=== PATIENT | male | born 1950 | race Caucasian/White ===

== ENCOUNTER 2018-08-27 13:27 | Emergency (ER) | payer BC, SELFPAY ==
[2018-08-27 13:28] VITALS: BP 157/93; PULSE 73; RESP 16; TEMP 36.9; O2SAT 96; BMI 32.8
--- NOTE | 2018-08-27 13:42 | ED.VIS.EYE ---
History of Present Illness Chief Complaint: Eye Problem Detail of Chief Complaint: Foreign body right eye Informant: Patient Location: Right Eye Onset: Days - 3 days Current Severity: Mild Maximum Severity: Moderate Associated Symptoms - Eyes: Foreign body sensation History of injury: Yes Visual correction: Glasses Narrative: Patient believes he got a piece of slack in his right eye 3 days ago. He states he thought he got it out and he had no pain that evening or the following day. Yesterday he had some mild right eye irritation and today it seems to be somewhat worse. He denies vision changes. Past Medical History - Allergies and Home Meds Allergies/Adverse Reactions: Allergies No Known Allergies Allergy (Verified 08/27/18 13:28) Primary Care Physician: Care Physician,No Primary [Primary Care Provider] - Prior records reviewed: Yes Past Medical History: - - Reviewed Lives: Spouse/ Significant Other Review of Systems General: Denies: Chills, Fever Eyes: Reports: - - Foreign body sensation right eye. Denies: Visual changes - left, Visual changes - right ENT: Denies: Bilateral ear pain Cardiovascular: Denies: Chest pain Respiratory: Denies: Dyspnea Gastrointestinal: Denies: Abdominal pain Neurological: Denies: Headache Physical Exam Eyelid: Normal inspection Right Conjunctiva/Sclera: No foreign body, - - Mild diffuse injection of the right conjunctiva. No obvious foreign body noted. Eyelid is inverted with no obvious foreign body. Left Conjunctiva/Sclera: Normal inspection Right Cornea: Normal inspection, Fluorescein dye uptake Extraocular Motion: Normal exam, No pain Pupils: PERRL Vital Signs/Narrative: Vital Signs Temp Pulse Resp BP Pulse Ox 08/27/18 13:28 98.5 F 73 16 157/93 H 96 General: Well nourished Head: Normocephalic ENT: Moist mucous membranes Cardiovascular: Regular rate, Regular rhythm Respiratory: No distress, CTA bilaterally Abdomen: Soft, Nontender Skin: Normal color Psychological: Normal affect Diagnostic/Tx/Re-eval - Medical Decision Making Patient has diffuse slight uptake diffusely over the eye. He will be given gentamicin eyedrops and will follow-up with either his volleyball referee or Dr. Blankenship. Procedures Procedure(s): Slit-lamp examination is performed. No obvious foreign body noted. No ulcerations noted. Fluorescein is applied and he has slight diffuse uptake over the eye as if he may have fallen asleep with his eye open. Because his pain initially was better after his reported foreign body and then worsened again this is certainly a possibility. Disposition: Home ED Disposition - Plan for ED Patient: Disposition: Home or Assisted Living Diagnosis: Corneal abrasion Instructions: ED Corneal Abrasion Referrals: Feliberto Blankenship MD [STAFF PHYSICIAN] - 1-2 Days if not improving Additional Instructions: 2 drops Gentamicin to right eye 4x/day until symptoms resolved for 24 hours.
[2018-08-27] MEDS: Fluorescein 1 MG STRIP 1 STRIP RIGHT EYE (13:47)
[2018-08-27] MEDS: Tetracaine 0.5% Ophthalmic Bottle 1 DRP RIGHT EYE (13:48)
[2018-08-27] MEDS: Gentamicin Sulfate 1 OPTH.BTL 2 DRP RIGHT EYE (14:35)
== END 2018-08-27 14:38 | disposition home or self-care (01) ==
PROVIDERS: Emergency Provider Emergency Medicine
DX: S05.01XA Injury of conjunctiva and corneal abrasion without foreign body, right eye, initial encounter (principal); X58.XXXA Exposure to other specified factors, initial encounter; Y93.89 Activity, other specified; Y92.89 Other specified places as the place of occurrence of the external cause; Y99.8 Other external cause status
CPT/HCPCS: 99282

== ENCOUNTER 2021-05-10 09:09 | Emergency (ER) | payer BC, SELFPAY ==
[2021-05-10 09:10] VITALS: BP 209/105; PULSE 83; RESP 16; TEMP 36.2; O2SAT 99; BMI 33.0
--- NOTE | 2021-05-10 09:15 | EDS_ITS ---
HPI <PAT Watkins - Last Filed: 05/10/21 10:12> History of Present Illness Chief Complaint: Eye Problem Narrative Narrative: Patient is a 8-year-old male with history of high blood pressure presents the emergency department with a foreign body-like sensation to his right eye. Patient had cataract surgery in both eyes 1 month ago, this was done in the eye clinic. Patient states that he quit the drops for swelling, pain on May 08, patient states he woke up approximately 1 or 2 in the morning with pain to the right eye, he went and sat in a chair. Patient states he woke up this morning, continue to feel foreign body sensation is here for evaluation. On assessment, patient is in no pain, patient denies any vision changes, fever chills nausea vomiting PFSH <PAT Watkins - Last Filed: 05/10/21 10:12> PFSH Medical History (Updated 05/10/21 @ 10:11 by PAT [email or web address]) Cataract, right eye Shingles Home Medications acyclovir 800 mg tablet 800 mg PO Q4H #20 tab 02/09/20 [Rx Last Taken Unknown] prednisone 10 mg tablet 10 mg PO .COMPLEX #40 tab 02/09/20 [Rx Last Taken Unknown] Allergy/AdvReac Type Severity Reaction Status Date / Time No Known Allergies Allergy Verified 05/10/21 09:12 Family History Other CAD (coronary artery disease) CVA (cerebral vascular accident) Hypertension Myocardial infarction Surgical History History of tonsillectomy Social History (Updated 02/09/20 @ 10:37 by Nelida HAYDEN, PA) Smoking Status: Never smoker alcohol intake: current ROS <PAT Watkins - Last Filed: 05/10/21 10:12> ROS ED ROS Narrative Constitutional: Negative for fever, chills, weight loss or gain, weakness Eyes: Negative for vision loss, vision change, double vision. Patient planes of right eye pain ENT: Negative for any hearing changes, ringing in the ears, discharge, pain Nose: Negative for any congestion, runny nose, sinus pain, allergies Throat: Negative for any sore throat, swelling, voice changes, Cardiovascular: Negative for any chest pain, tightness, palpitations, racing heartbeat Respiratory: Negative for any cough, sputum production, hemoptysis, shortness of breath, shortness of breath on exertion, Gastrointestinal: Negative for any abdominal pain, nausea, vomiting, diarrhea, constipation, blood in stool, blood in vomit : Negative for any urinary frequency, incontinence, dysuria, retention, blood in urine Muscle skeletal: Negative for any muscle joint pain, stiffness, myalgias, arthralgias, neck pain, back pain Neurological: Negative for any headache, dizziness, syncope, numbness or tingling Skin: Negative for any rashes, lumps, itching, abrasions, lacerations Psychiatric: Negative for any depression, anxiety, stress, suicidal ideation, homicidal ideation Hematologic: Negative for any easy bruising, excessive bruising, easy bleeding Allergies: Negative for any eczema, hives, rash EXAM <PAT Watkins - Last Filed: 05/10/21 10:12> Physical Exam Const Vital Signs: 05/10/21 09:10 Temperature 97.2 F L Temperature Source Temporal Pulse Rate 83 Respiratory Rate 16 Blood Pressure 209/105 H Blood Pressure Mean 139 Pulse Ox 99 Oxygen Delivery Method Room Air Positive well nourished and well developed General Appearance ED: well developed HEENT atraumatic Eyes Eyes Narrative: Patient's right eye was evaluated, there was no foreign body noted, patient was pain-free during exam. Patient was fluorescein stain, slit- lamp was used, there is no corneal abrasion, patient had a normal exam. Patient's visual acuity was unremarkable. Again patient had no pain during his time in the emergency department. Neck no lymphadenopathy and supple Resp normal respiratory effort Cardio regular rate and regular rhythm GI non-tender Palpation: soft Back/Spine no CVA tenderness Extremity normal to inspection Neuro oriented x3 Sensorium / Orientation: alert and oriented to person Skin Rashes: no rashes [facility] <PAT Watkins - Last Filed: 05/10/21 10:12> [facility] Narrative Medical decision making narrative: Patient appears well, patient appears nontoxic, vital signs are stable. Patient presents to the emergency department with complaints of right eye pain cataract surgery. Patient states that he is in no pain at this time. Patient did receive a full examination of his eye, there is no corneal abrasion, no deep tissue infection, patient had normal visual acuity. Patient's blood pressure was elevated however patient was also very anxious as well as irritated. Patient repeat exam was unremarkable. Patient will follow up with Dr[facility]. Patient is agreeable with the plan and is stable for discharge. Instructed return for worsening symptoms <Dr. Eliezer Archibald MD - Last Filed: 05/10/21 10:13> [facility] Narrative Medical decision making narrative: I have personally performed a face to face assessment of the patient and have reviewed the ANGELICA Note. I performed a substantive portion of the visit including all aspects of the following. My posada findings include: History is [71-year-old male with right eye discomfort. He had bilateral cataract surgery done about a month ago. Intermittently he gets pain. Says his vision has been very good. He denies any change. He denies any trauma. And no known foreign body.] Exam is [8-year-old male no acute distress. H EENT exam unremarkable his right eye is mildly watering. There is no foreign body. There is no discharge. Pupils round reactive light. Extraocular motions are intact bilaterally. Slit- lamp examination of the right eye with fluorescein shows no foreign body. No corneal abrasion. No signs of infection. There is no ulcer. The upper and lower lids were everted they were unremarkable. Patient's pain is resolved.] Medical Decision Making [exam benign. 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 This is the one in [place]. Print Language: Citizen Of [place] Disposition Disposition: Home, Self Care
[2021-05-10] MEDS: Fluorescein 1 MG STRIP 1 STRIP LEFT EYE (09:20)
[2021-05-10] MEDS: Tetracaine 0.5% Ophthalmic Bottle 1 DRP LEFT EYE (09:20)
== END 2021-05-10 10:16 | disposition home or self-care (01) ==
PROVIDERS: Emergency Provider Emergency Medicine; Visit Provider Emergency Medicine
DX: H57.11 Ocular pain, right eye (principal); I10 Essential (primary) hypertension
CPT/HCPCS: 99282